=== PATIENT | female | born 1950 | race Caucasian/White ===

== ENCOUNTER 2016-04-12 18:26 | Emergency (ER) | payer MEDICARE, OTHER ==
--- NOTE | 2016-04-12 18:47 | ER Document Report ---
ED Medical Screen (RME) - General Stated Complaint: RIB PAIN Mode of Arrival: Ambulatory Information source: Patient Notes: Patient presents to the emergency department with right-sided rib pain she turned and hit her ribs on the engine block. Patient has a history of fractured ribs. No other symptoms. I greeted and performed a rapid initial assessment of this patient. Comprehensive ED assessment and evaluation of the patient, analysis of test results and completion of the medical decision making process will be conducted by additional ED providers. TRAVEL OUTSIDE OF THE [place] IN LAST 30 DAYS: No - Related Data Allergies/Adverse Reactions: doxycycline [Doxycycline] Allergy (Verified 07/25/13 09:42) hydromorphone HCl [From Dilaudid] Allergy (Verified 07/25/13 09:42) morphine [Morphine] Allergy (Verified 07/25/13 09:42) Past Medical History - Past Medical History Cardiac Medical History: Reports: Hx Hypertension Psychiatric Medical History: Reports: Hx Anxiety, Hx Depression Past Surgical History: Reports: Hx Abdominal Surgery, Hx Appendectomy, Hx Hysterectomy, Hx Orthopedic Surgery - Cervical and lumbar back
[2016-04-12 20:56] VITALS: BP 125/80
--- NOTE | 2016-04-12 20:57 | ER Document Report ---
HPI - HPI Patient complains to provider of: rib pain Onset: Yesterday Onset/Duration: Persistent Quality of pain: Achy Severity: Severe Pain Level: 4 Context: Patient presents to the emergency department with complaints of right-sided pain. She reports she was helping her son yesterday and bumped her ribs on an engine block. She reports history of fractured ribs and it feels the same way. Denies other symptoms such as fever vomiting diarrhea. She is speaking in clear voice no respiratory distress. Associated Symptoms: None. denies: Nonproductive cough Exacerbated by: Denies Relieved by: Denies Similar symptoms previously: Yes - hx of fx ribs Recently seen / treated by doctor: No - REPRODUCTIVE Reproductive: DENIES: : - DERM Skin Color: Normal Past Medical History - General Information source: Patient - Social History Smoking Status: Never Smoker Chew tobacco use (# tins/day): No Frequency of alcohol use: None Drug Abuse: None Lives with: Family Family History: Reviewed & Not Pertinent Patient has suicidal ideation: No Patient has homicidal ideation: No - Past Medical History Cardiac Medical History: Reports: Hx Hypertension Renal/ Medical History: Denies: Hx Peritoneal Dialysis Psychiatric Medical History: Reports: Hx Anxiety, Hx Depression Past Surgical History: Reports: Hx Abdominal Surgery, Hx Appendectomy, Hx Hysterectomy, Hx Orthopedic Surgery - Cervical and lumbar back Vertical Provider Document - CONSTITUTIONAL Agree With Documented VS: Yes Exam Limitations: No Limitations General Appearance: WD/WN, Mild Distress - guarding ribs - INFECTION CONTROL TRAVEL OUTSIDE OF THE [place] IN LAST 30 DAYS: No - HEENT HEENT: Atraumatic, Normocephalic - NECK Neck: Supple - RESPIRATORY Respiratory: Breath Sounds Normal, No Respiratory Distress, Other - right anterior ribs ttp, no ecchymosis ,rr even/unlabored - CARDIOVASCULAR Cardiovascular: Regular Rate - GI/ABDOMEN Gastrointestinal: Abdomen Soft - BACK Back: Normal Inspection - MUSCULOSKELETAL/EXTREMETIES Musculoskeletal/Extremeties: CASPER YIN - NEURO Level of Consciousness: Awake, Alert, Appropriate - DERM Integumentary: Warm, Dry Adult Front & Back Diagram: 1 - c/o pain Course - Re-evaluation Re-evalutation: 04/12/16 21:00 Patient instructed on negative x-rays. Patient instructed to follow up with her primary care provider for recheck. She verbalized understanding. She also reports she has norcol at home for her chronic back pain. - Diagnostic Test Radiology reviewed: Image reviewed, Reports reviewed - neg Discharge - Discharge Clinical Impression: elevated blood pressure Contusion of rib on right side Qualifiers: Encounter type: initial encounter Qualified Code(s): S20.211A - Contusion of right front wall of thorax, initial encounter Condition: Stable Disposition: HOME, SELF-CARE Instructions: Rib Contusion ([facility]) Additional Instructions: *You have been evaluated for rib pain, contusion *Monitor your blood pressure. Your blood pressure was elevated today. This may be because you were anxious, in pain or because you need medication. It is important to follow up with your primary care provider for full evaluation. *Take your pain medication as prescribed *Cough and deep breathe hourly as discussed *Follow up with your primary care provider within one week for recheck *Return to ED for worsening condition, changes, needs Forms: Elevated Blood Pressure
== END 2016-04-12 20:56 | disposition home or self-care (01) ==
LOC: ER 18:26
DX: S20.211A Contusion of right front wall of thorax, initial encounter (principal); R07.81 Pleurodynia; R03.0 Elevated blood-pressure reading, without diagnosis of hypertension; W22.8XXA Striking against or struck by other objects, initial encounter
CPT/HCPCS: 99283

== ENCOUNTER 2016-07-21 05:41 | Emergency (ER) | payer MEDICARE, OTHER ==
[2016-07-21] MEDS ORDERED: ONDANSETRON HCL INJ/PF 4 MG/2 ML SDV ONE (06:03)
[2016-07-21] MEDS ORDERED: NORMAL SALINE 1000 ML 1,000 ML IV ONE (06:04)
[2016-07-21] MEDS ORDERED: ONDANSETRON HCL INJ/PF 4 MG/2 ML SDV IV ONE (06:09)
--- NOTE | 2016-07-21 06:18 | ER Document Report ---
ED GI/ - General Time seen by provider: 06:30 Mode of Arrival: Ambulatory Information source: Patient TRAVEL OUTSIDE OF THE [place] IN LAST 30 DAYS: No - HPI Patient complains to provider of: Diarrhea. No: Vomiting Onset: Other - see HPI note Associated symptoms: Diarrhea Similar symptoms previously: No Recently seen / treated by doctor: No <DELORIS EPSTEIN - Last Filed: 07/21/16 11:30> <JOSIAHCRISTOFER - Last Filed: 07/22/16 05:31> - General Chief Complaint: Nausea/Vomiting/Diarrhea Stated Complaint: VOMITING,DIARRHEA Notes: Patient is a 66 year old female presenting to the ED for diarrhea. Patient states she has had 17 episodes of yellow diarrhea since last night around 21: 00. Patient states diarrhea is not common for her. Patient is on pain management but states she is slowly being weaned off her medicine dosages. Patient states she is also having some headaches/neck pain and hip pain which is chronic for her. Patient states she has had increased pain which is due to her lowering the dosages of her pain medications. Patient sees Dr. Alvares for pain management and Dr. Montgomery as her PCP. Patient has a history of gastric bypass, cholecystectomy, hysterectomy, and diverticulitis. Patient complains of some nausea but denies any vomiting or rectal bleeding. Patient states her pain medications are being lowered because they may be affecting her ability to remember. (DELORIS EPSTEIN) - Related Data Allergies/Adverse Reactions: doxycycline [Doxycycline] Allergy (Verified 04/12/16 18:45) hydromorphone HCl [From Dilaudid] Allergy (Verified 04/12/16 18:45) morphine [Morphine] Allergy (Verified 04/12/16 18:45) Past Medical History - General Information source: Patient - Social History Smoking Status: Unknown if Ever Smoked Family History: None Patient has suicidal ideation: No Patient has homicidal ideation: No - Past Medical History Cardiac Medical History: Reports: Hx Hypertension GI Medical History: Reports: Hx Diverticulitis Psychiatric Medical History: Reports: Hx Anxiety, Hx Depression Past Surgical History: Reports: Hx Abdominal Surgery, Hx Appendectomy, Hx Cholecystectomy, Hx Gastric Bypass Surgery, Hx Hysterectomy, Hx Orthopedic Surgery - Cervical and lumbar back <DELORIS EPSTEIN - Last Filed: 07/21/16 11:30> Review of Systems - Review of Systems Constitutional: No symptoms reported EENT: No symptoms reported Cardiovascular: No symptoms reported Respiratory: No symptoms reported Gastrointestinal: See HPI, Diarrhea, Nausea. denies: Vomiting Genitourinary: No symptoms reported Female Genitourinary: No symptoms reported Musculoskeletal: See HPI Skin: No symptoms reported Hematologic/Lymphatic: No symptoms reported Neurological/Psychological: See HPI, Headaches -: Yes All other systems reviewed and negative <DELORIS EPSTEIN - Last Filed: 07/21/16 11:30> Physical Exam - Vital signs Interpretation: Hypotensive - General General appearance: Appears well, Alert In distress: Mild - HEENT Head: Normocephalic, Atraumatic Eyes: Normal Pupils: PERRL Mucous membranes: Moist - Respiratory Respiratory status: No respiratory distress Chest status: Nontender Breath sounds: Normal Chest palpation: Normal - Cardiovascular Rhythm: Regular Heart sounds: Normal auscultation Murmur: No - Abdominal Inspection: Normal Distension: No distension Bowel sounds: Normal Tenderness: Nontender Organomegaly: No organomegaly - Back Back: Normal, Nontender - Extremities General upper extremity: Normal inspection, Normal ROM, Normal strength General lower extremity: Normal inspection, Normal ROM, Normal strength - Neurological Neuro grossly intact: Yes Cognition: Normal Orientation: AAOx4 Alisson Coma Scale Eye Opening: Spontaneous Alisson Coma Scale Verbal: Oriented Alisson Coma Scale Motor: Obeys Commands [place] Coma Scale Total: 15 Speech: Normal - Psychological Associated symptoms: Normal affect, Normal mood - Skin Skin Temperature: Warm Skin Moisture: Dry <TETEDELORIS - Last Filed: 07/21/16 11:30> Course - Laboratory Result Diagrams: 07/21/16 06:05 07/21/16 06:05 <STANFORDANGELIADELORIS - Last Filed: 07/21/16 11:30> - Laboratory Result Diagrams: 07/21/16 06:05 07/21/16 06:05 <CRISTOFER RAHMAN - Last Filed: 07/22/16 05:31> - Re-evaluation Re-evalutation: 07/21/16 09:35 presents emergency, chief complaint of pain all over dry heaving and diarrhea. Says she started with diarrhea last night had several episodes of nonbloody in nature said she had a history of a gastric bypass that she can only dry heaves. Her main complaint on arrival is pain aching in her shoulders or neck and her back area she has a chronic pain patient and sees pain management. They have been weaning her off of her medication due to some neuro concerns that the neurologist has with dementia and forgetfulness. On examination she is well-appearing nontoxic vital signs are stable she is afebrile she is in no acute distress. Heart lungs abdomen serial exams no acute tenderness guarding or rigidity labs no acute white count elevation electrolytes are stable no acute emergent concerns for need for CT scan. Patient tolerating by mouth fluids sent home with nausea medication oral hydration one to 2 day follow-up primary care physician and discussed reasons for ED return sooner 07/22/16 05:31 (CRISTOFER RAHMAN) - Vital Signs Vital signs: Temp Pulse Resp BP Pulse Ox 99.9 F 83 16 120/84 99 07/21/16 10:01 07/21/16 10:01 07/21/16 10:01 07/21/16 10:01 07/21/16 10:01 - Laboratory Laboratory results interpreted by me: 07/21/16 07/21/16 07/21/16 06:05 06:05 07:38 RDW 14.2 H Seg Neutrophils % 81.8 H Lymphocytes % 9.3 L Sodium 136.4 L Carbon Dioxide 19 L Est GFR (Non-Af Amer) 56 L Glucose 112 H AST 40 H Total Protein 8.4 H Urine Ketones 20 H Discharge <DELORIS EPSTEIN - Last Filed: 07/21/16 11:30> <CRISTOFER RAHMAN - Last Filed: 07/22/16 05:31> - Discharge Clinical Impression: generalized pain, history of chronic pain, Acute diarrhea, acute nausea Condition: Stable Disposition: HOME, SELF-CARE Additional Instructions: Diarrhea Diarrhea means frequent, watery stools. There are many causes. Any problem that keeps the intestinal tract from absorbing water from the stool can lead to diarrhea. A sudden new diarrhea problem is usually caused by a virus, food sensitivity, toxic bacteria, or drugs. In this case, we expect the problem to go away soon. Testing is done only if you seem seriously ill from the diarrhea. If you have chronic diarrhea, or diarrhea that keeps coming back, we need to find out why. Chronic diarrhea can be due to inflammation of the bowels such as Crohn's disease or ulcerative colitis, food sensitivity such as intolerance to lactose or wheat protein, irritable bowel syndrome, and other problems. If your diarrhea is a significant problem but it's not clear why you have it, we' ll refer you to a specialist for further testing. During an episode of diarrhea, drink small amounts (two to six ounces) of clear liquids (soft drinks, sport drinks, herb teas, broth, etc). Take fluids frequently to prevent dehydration. It's usually not a problem to take mild anti- diarrhea medication such as Kaopectate or Pepto-Bismol. As the diarrhea eases, advance to small amounts of bland food (mashed potato, toast) for 24 hours. Call the physician if blood appears in your vomit or stool, if vomiting lasts longer than 24 hours, if the abdominal pain worsens or becomes localized to one area, if you develop high fever, or if you become lightheaded and weak. Nausea or Vomiting, Nonspecific Vomiting (or nausea without vomiting) can be caused by many different problems. Of course, it can mean that something's wrong with the stomach, such as "stomach flu," ulcers, or inflammation. But it can also be a symptom of a problem that has nothing to do with the stomach or intestines. Vomiting is common with severe headaches, earaches, and tonsillitis. We see it with pneumonia or heart attacks. Drugs can cause nausea. Many abdominal problems cause vomiting; for example, gallstones, kidney stones, pancreatitis, and intestinal obstruction (blocked bowels). In most cases, curing the vomiting depends on fixing the problem that caused it. For temporary relief, we may use an anti-nausea medicine. For home use, we can prescribe suppositories, chewable pills, pills that dissolve in the mouth, or liquid anti-nausea drugs. If the vomiting seems to be caused by a problem in the stomach, acid-suppressing drugs may be prescribed as well. It's important to avoid dehydration. Sip clear liquids. Take increasing amounts of fluid over the first 24 hours. Then start small amounts of bland foods (such as dry toast, applesauce, mashed potato). Avoid aspirin, tobacco, and alcohol. Gradually resume your usual diet. If the vomiting worsens, if the problem that's making you vomit worsens, or if there's evidence of bleeding in the stomach (such as black, tarry stool, bloody or black vomit, or lightheadedness), you should return immediately. Call your doctor if you aren't improved in 24 to 36 hours. Prescriptions: Ondansetron [Zofran Odt 4 mg Tablet] 1 - 2 tab PO Q4H PRN #15 tab.rapdis PRN Reason: For Nausea/Vomiting Referrals: RAMIREZ BELCHER PA [Primary Care Provider] - (In 2-3 days return for increasing worsening or new symptoms) Scribe Attestation: 07/21/16 09:37 I personally performed the services described in the documentation reviewed the documentation recorded by my scribe in my presence and it accurately and completely records my words and actions (CRISTOFER RAHMAN) Scribe Documentation - Scribe Written by Scribe:: Deloris Epstein 07/21/16 11:45 acting as scribe for :: Josiah <DELORIS EPSTEIN - Last Filed: 07/21/16 11:30>
[2016-07-21 06:27] LABS: ABSOLUTE EOSINOPHILS # (AUTO) 0.1 10^3/uL (0.0-0.6); ABSOLUTE LYMPHOCYTES (AUTO) 0.9 10^3/uL (0.5-4.7); ABSOLUTE MONOCYTES (AUTO) 0.7 10^3/uL (0.1-1.4); ABSOLUTE NEUT (AUTO) 7.5 10^3/uL (1.7-8.2); BASOPHILS % (AUTO) 0.3 % (0-2); EOSINOPHILS % (AUTO) 0.7 % (0-6); HEMATOCRIT 40.1 % (36.0-47.0); HEMOGLOBIN 13.8 g/dL (12.0-15.5); HGB HCT DIFFERENCE 1.3; LYMPHOCYTES % (AUTO) 9.3 % (13-45); MEAN CORPUSCULAR HEMOGLOBIN 30.1 pg (27.0-33.4); MEAN CORPUSCULAR HGB CONC 34.4 g/dL (32.0-36.0); MEAN CORPUSCULAR VOLUME 88 fl (80-97); MONOCYTES % (AUTO) 7.9 % (3-13); RED BLOOD COUNT 4.57 10^6/uL (3.72-5.28); RED CELL DISTRIBUTION WIDTH 14.2 % (11.5-14.0); SEGMENTED NEUTROPHILS % (AUTO) 81.8 % (42-78); WHITE BLOOD COUNT 9.1 10^3/uL (4.0-10.5)
[2016-07-21 06:31] LABS: ALANINE AMINOTRANSFERASE 40 U/L (9-52); ALKALINE PHOSPHATASE 118 U/L (38-126); ANION GAP 16 (5-19); ASPARTATE AMINO TRANSFERASE 40 U/L (14-36); BILIRUBIN,DIRECT 0.3 mg/dL (0.0-0.4); BILIRUBIN,TOTAL 0.8 mg/dL (0.2-1.3); BLOOD UREA NITROGEN 17 mg/dL (7-20); CALCIUM 9.7 mg/dL (8.4-10.2); CARBON DIOXIDE 19 mmol/L (22-30); CHLORIDE 101 mmol/L (98-107); CREATININE RESULT 0.99 mg/dL (0.52-1.25); GLUCOSE 112 mg/dL (75-110); LIPASE 93.7 U/L (23-300); POTASSIUM 4.1 mmol/L (3.6-5.0); SODIUM 136.4 mmol/L (137-145); TOTAL PROTEIN 8.4 g/dL (6.3-8.2)
[2016-07-21] MEDS ORDERED: LORAZEPAM INJ 2 MG/1 ML VIAL IV ONE (07:26)
[2016-07-21 08:12] LABS: APPEARANCE,URINE SLIGHTLY-CLOUDY; BILIRUBIN,URINE NEGATIVE (NEGATIVE); GLUCOSE, URINE NEGATIVE (NEGATIVE); KETONES,URINE 20 mg/dL (NEGATIVE); LEUKOCYTE ESTERASE,URINE NEGATIVE (NEGATIVE); NITRITE,URINE NEGATIVE (NEGATIVE); PROTEIN,URINE NEGATIVE (NEGATIVE); URINE SPECIFIC GRAVITY 1.016; UROBILINOGEN,URINE NEGATIVE mg/dL (<2.0)
[2016-07-21 10:02] VITALS: BP 120/84
== END 2016-07-21 10:01 | disposition home or self-care (01) ==
LOC: ER 05:41
DX: R52 Pain, unspecified (principal); G89.29 Other chronic pain; R19.7 Diarrhea, unspecified; R11.2 Nausea with vomiting, unspecified
CPT/HCPCS: 99284; 96361; 96374; 96375; 36415; 83690; 85025; 80053; 81001; J2060; J2405; J7030

== ENCOUNTER 2016-08-16 16:36 | Emergency (ER) | payer MEDICARE, OTHER ==
[2016-08-16] MEDS ORDERED: ACETAMINOPHEN 325 MG TABLET PO ONE (18:05)
--- NOTE | 2016-08-16 19:40 | ER Document Report ---
HPI - HPI Patient complains to provider of: Arm pain Pain Level: 5 Context: Patient is a 66-year-old female presents emergency department after a fall onto an outstretched hand earlier this afternoon. She admits to pain in her left hand wrist forearm and elbow. She has full range of motion, sensation intact. Denies any other injury. Patient is in pain management for degenerative disc disease and arthritis of her back. She states that she takes 07/31/24 [place] twice daily for her pain. - REPRODUCTIVE Reproductive: DENIES: : - DERM Skin Color: Normal Past Medical History - Social History Smoking Status: Never Smoker Chew tobacco use (# tins/day): No Frequency of alcohol use: None Drug Abuse: None Family History: None Patient has suicidal ideation: No Patient has homicidal ideation: No - Past Medical History Cardiac Medical History: Reports: Hx Hypertension Renal/ Medical History: Denies: Hx Peritoneal Dialysis GI Medical History: Reports: Hx Diverticulitis Psychiatric Medical History: Reports: Hx Anxiety, Hx Bipolar Disorder, Hx Depression Past Surgical History: Reports: Hx Abdominal Surgery, Hx Appendectomy, Hx Cholecystectomy, Hx Gastric Bypass Surgery, Hx Hysterectomy, Hx Orthopedic Surgery - Cervical and lumbar back Vertical Provider Document - CONSTITUTIONAL Agree With Documented VS: Yes Exam Limitations: No Limitations General Appearance: WD/WN, No Apparent Distress Notes: PHYSICAL EXAM GENERAL: Alert, interacts well. HEAD: Normocephalic, atraumatic. LUNGS: Clear to auscultation bilaterally, no wheezes, rales, or rhonchi. No respiratory distress. HEART: Regular rate and rhythm. No murmurs, gallops, or rubs. EXTREMITIES: Moves all 4 extremities spontaneously guarding of the left forearm. Patient's range of motion is intact, sensation intact. No evidence of swelling, deformity.. No edema, radial and dorsalis pedis pulses 2/4 bilaterally. No cyanosis. NEUROLOGICAL: Alert and oriented x4. Normal speech. PSYCH: Normal affect, normal mood. SKIN: Warm, dry, normal turgor. No rashes or lesions noted. - INFECTION CONTROL TRAVEL OUTSIDE OF THE [place] IN LAST 30 DAYS: No - RESPIRATORY O2 Sat by Pulse Oximetry: 99 Course - Re-evaluation Re-evalutation: 08/16/16 20:12 This 56-year-old female who is hemodynamic stable, no acute distress and afebrile. No evidence of fracture dislocation on x-ray. Patient placed in a splint per her request and will be discharged home. - Vital Signs Vital signs: Temp Pulse Resp BP Pulse Ox 98.4 F 73 16 112/77 99 08/16/16 16:44 08/16/16 16:44 08/16/16 16:44 08/16/16 16:44 08/16/16 16:44 - Diagnostic Test Radiology reviewed: Image reviewed, Reports reviewed Discharge - Discharge Clinical Impression: Left arm pain Condition: Good Disposition: HOME, SELF-CARE Instructions: Ice & Elevation ([facility]), Use of Errd-Ter-Pnsnzzv Ibuprofen ([facility]) Prescriptions: Hydrocodone/Acetaminophen [[place] 5-325 mg Tablet] 1 tab PO Q6HP PRN #15 tablet PRN Reason: Referrals: RAMIREZ BELCHER PA [Primary Care Provider] - Follow up as needed
[2016-08-16 19:55] VITALS: BP 121/79
== END 2016-08-16 19:57 | disposition home or self-care (01) ==
LOC: ER 16:36
DX: M79.602 Pain in left arm (principal); W19.XXXA Unspecified fall, initial encounter; I10 Essential (primary) hypertension; Z90.49 Acquired absence of other specified parts of digestive tract; Z98.84 Bariatric surgery status; Z90.710 Acquired absence of both cervix and uterus
CPT/HCPCS: 99283; 73070; 73120; 73100; L3984; A9270

== ENCOUNTER 2016-08-21 17:53 | Emergency (ER) | payer MEDICARE, OTHER ==
[2016-08-21] MEDS ORDERED: DIAZEPAM INJ 10 MG/2 ML DISP.SYRIN IV ONE ×2 (18:49→20:31)
--- NOTE | 2016-08-21 18:53 | ER Document Report ---
ED General - General Chief Complaint: Anxiety Stated Complaint: ANXIETY Time Seen by Provider: 08/21/16 18:16 Notes: Patient is a 66-year-old female with a past medical history of severe anxiety, chronic pain, Mnire's disease with persistent vertigo who presents with increasing anxiety, a feeling of difficulty breathing, and vertigo. She was sent from her psychiatry clinic due to her feeling of difficulty breathing. States it has felt very similar to in the past when she has had anxiety attacks. She admits that she is currently weaning off a total of 4 mg of Xanax daily and apparently has not taken this medication in several weeks. She has not noted that anything seems to improve or worsen her symptoms. Denies any chest pain, weakness, numbness, altered mental status nausea or vomiting. Her at the bedside notes that they are under an extreme amount of stress due to family discord, financial strain, including a house and that the patient' s anxiety and somatic symptoms have been gradually building over the past 2 months TRAVEL OUTSIDE OF THE [place] IN LAST 30 DAYS: No - Related Data Allergies/Adverse Reactions: doxycycline [Doxycycline] Allergy (Verified 04/12/16 18:45) hydromorphone HCl [From Dilaudid] Allergy (Verified 04/12/16 18:45) morphine [Morphine] Allergy (Verified 04/12/16 18:45) Past Medical History - General Information source: Patient - Social History Smoking Status: Never Smoker Chew tobacco use (# tins/day): No Frequency of alcohol use: None Drug Abuse: None Lives with: Spouse/Significant other Family History: Reviewed & Not Pertinent - Past Medical History Cardiac Medical History: Reports: Hx Hypertension Renal/ Medical History: Denies: Hx Peritoneal Dialysis GI Medical History: Reports: Hx Diverticulitis Psychiatric Medical History: Reports: Hx Anxiety, Hx Bipolar Disorder, Hx Depression Past Surgical History: Reports: Hx Abdominal Surgery, Hx Appendectomy, Hx Cholecystectomy, Hx Gastric Bypass Surgery, Hx Hysterectomy, Hx Orthopedic Surgery - Cervical and lumbar back Review of Systems - Review of Systems Notes: Constitutional: Negative for fever. HENT: Negative for sore throat. Eyes: Negative for visual changes. Cardiovascular: Negative for chest pain. Respiratory: Positive for shortness of breath. Gastrointestinal: Negative for abdominal pain, vomiting or diarrhea. Genitourinary: Negative for dysuria. Musculoskeletal: Negative for back pain. Skin: Negative for rash. Neurological: Negative for headaches, weakness or numbness. 10 point ROS negative except as marked above and in HPI. Physical Exam - Vital signs Vitals: Resp BP Pulse Ox 15 141/84 H 100 08/21/16 19:05 08/21/16 19:05 08/21/16 19:05 Interpretation: Normal Notes: PHYSICAL EXAMINATION: GENERAL: Well-appearing, well-nourished and in no acute distress. HEAD: Atraumatic, normocephalic. EYES: Pupils equal round and reactive to light, extraocular movements intact, sclera anicteric, conjunctiva are normal. ENT: nares patent, oropharynx clear without exudates. Moist mucous membranes. NECK: Normal range of motion, supple without lymphadenopathy LUNGS: Breath sounds clear to auscultation bilaterally and equal. No wheezes rales or rhonchi. HEART: Regular rate and rhythm without murmurs ABDOMEN: Soft, nontender, normoactive bowel sounds. No guarding, no rebound. No masses appreciated. EXTREMITIES: Normal range of motion, no pitting or edema. No cyanosis. NEUROLOGICAL: Face symmetric. Tongue protrudes midline. Extraocular motions intact. Pupils are 2 mm and equally reactive. Normal speech, normal gait. 5 out of 5 strength in both the distal and proximal upper and lower extremities bilaterally. Sensation is grossly intact throughout. Finger to nose testing normal. Pronator drift normal. PSYCH: Extremely anxious, tremulous, tearful SKIN: Warm, Dry, normal turgor, no rashes or lesions noted. Course - Re-evaluation Re-evalutation: 08/21/16 18:50 Presentation of vertigo that appears most consistent with a benign peripheral vertigo. Patient has a history of exact same symptoms in the past with exacerbations of her underlying Mnire's disease. She is also complaining of shortness of breath which both she and her agree is likely related to her underlying anxiety and panic disorder as she is currently off of her alprazolam. Patient has no abnormal findings on exam. Normal cerebellar testing , steady even gait. Able to walk on heels and toes. Normal proprioception. Patient is not an elevated risk for a cerebellar infarction given absence of significant risk factors of similar episodes in the past. Her laboratories do not indicate any acute ab normality to be a mild hyponatremia and patient does admit to decreased oral intake. 08/21/16 20:59 Patient had an improvement of her symptoms at this time. She remains without any focal neurologic deficit. She has been able to ambulate to the bathroom. At this time will discharge with return precautions and follow-up recommendations. Verbal discharge instructions given a the bedside and opportunity for questions given. Medication warnings reviewed. Patient is in agreement with this plan and has verbalized understanding of return precautions and the need for primary care follow-up in the next 24-72 hours. - Vital Signs Vital signs: Temp Pulse Resp BP Pulse Ox 51 L 16 172/71 H 100 08/21/16 21:22 08/21/16 21:22 08/21/16 21:22 08/21/16 21:22 - Laboratory Result Diagrams: 08/21/16 19:10 Laboratory results interpreted by me: 08/21/16 19:10 Sodium 128.0 L Potassium 3.5 L Chloride 97 L Carbon Dioxide 19 L - Diagnostic Test Radiology reviewed: Image reviewed, Reports reviewed - EKG Interpretation by Me Additional EKG results interpreted by me: 08/21/16 20:36 Normal sinus rhythm. Rate 60. No ST elevations or depressions. QTC at 448. Discharge - Discharge Clinical Impression: Dizziness, Hyponatremia Condition: Good Disposition: HOME, SELF-CARE Instructions: Anxiety ([facility]) Additional Instructions: You were seen today for lightheadedness/dizziness. The exact cause of your symptoms is unclear but your workup here is reassuring without any concerning findings. Please follow closely with your primary care physician in the next 1- 3 days. Return if you pass out, have additional episodes of lightheadedness, develop weakness/numbness, have persistent vomiting, chest pain, shortness of breath or any other symptoms that are concerning to you Referrals: RAMIREZ BELCHER PA [Primary Care Provider] - Follow up as needed
--- NOTE | 2016-08-21 19:13 | RADIOLOGY REPORT (SQ) ---
EXAM DESCRIPTION: CHEST SINGLE VIEW COMPLETED DATE/TIME: 08/21/2016 7:03 pm REASON FOR STUDY: sob COMPARISON: 09/02/2007 EXAM PARAMETERS: NUMBER OF VIEWS: One view. TECHNIQUE: Single frontal radiographic view of the chest acquired. RADIATION DOSE: NA LIMITATIONS: None. FINDINGS: LUNGS AND PLEURA: No opacities, masses or pneumothorax. No pleural effusion. MEDIASTINUM AND HILAR STRUCTURES: No masses. Contour normal. HEART AND VASCULAR STRUCTURES: Heart normal in size. Normal vasculature. BONES: No acute findings. HARDWARE: None in the chest. OTHER: No other significant finding. IMPRESSION: NO ACUTE RADIOGRAPHIC FINDING IN THE CHEST. TECHNICAL DOCUMENTATION: JOB ID: [id number]
[2016-08-21 19:34] LABS: ANION GAP 12 (5-19); BLOOD UREA NITROGEN 11 mg/dL (7-20); CALCIUM 9.6 mg/dL (8.4-10.2); CARBON DIOXIDE 19 mmol/L (22-30); CHLORIDE 97 mmol/L (98-107); GLUCOSE 94 mg/dL (75-110); POTASSIUM 3.5 mmol/L (3.6-5.0)
[2016-08-21] MEDS ORDERED: NORMAL SALINE 1000 ML 1,000 ML IV ONE (19:40)
--- NOTE | 2016-08-21 20:05 | EKG REPORT ---
SEVERITY:- BORDERLINE ECG - SINUS RHYTHM BORDERLINE T ABNORMALITIES, INFERIOR LEADS : Confirmed by: Brandon Andrews MD 21-Aug-2016 20:04:47
[2016-08-21 21:23] VITALS: BP 172/71
== END 2016-08-21 21:22 | disposition home or self-care (01) ==
LOC: ER 17:53
DX: R42 Dizziness and giddiness (principal); E87.1 Hypo-osmolality and hyponatremia; F41.9 Anxiety disorder, unspecified; G89.29 Other chronic pain; H81.09 Meniere's disease, unspecified ear; R06.02 Shortness of breath; Z79.899 Other long term (current) drug therapy
CPT/HCPCS: 93005; 96376; 99284; 96361; 96374; 36415; 80048; 84484; 71010; 93010; J3360; J7030

== ENCOUNTER 2016-11-06 20:12 | Emergency (ER) | payer MEDICARE, OTHER ==
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
[2016-11-07 00:59] VITALS: BP 133/71
== END 2016-11-07 16:31 | disposition home or self-care (01) ==
LOC: ER 20:12
DX: S20.211A Contusion of right front wall of thorax, initial encounter (principal); R07.9 Chest pain, unspecified; W20.8XXA Other cause of strike by thrown, projected or falling object, initial encounter; Y93.H9 Activity, other involving exterior property and land maintenance, building and construction; I10 Essential (primary) hypertension; Z88.1 Allergy status to other antibiotic agents; Z88.5 Allergy status to narcotic agent
CPT/HCPCS: 71020; 99284

== ENCOUNTER 2017-03-31 17:35 | Emergency (ER) | payer MEDICARE, OTHER ==
[2017-03-31] MEDS ORDERED: ADENOSINE INJ/PF 6 MG/2 ML SDV IV ONE ×2 (17:49→18:01)
[2017-03-31] MEDS ORDERED: ASPIRIN 81 MG TABLET, CHEWABLE PO ONE (18:01)
[2017-03-31 18:19] LABS: ABSOLUTE BASOPHILS # (AUTO) 0.1 10^3/uL (0.0-0.2); ABSOLUTE EOSINOPHILS # (AUTO) 0.1 10^3/uL (0.0-0.6); ABSOLUTE LYMPHOCYTES (AUTO) 3.6 10^3/uL (0.5-4.7); ABSOLUTE MONOCYTES (AUTO) 0.9 10^3/uL (0.1-1.4); ABSOLUTE NEUT (AUTO) 4.6 10^3/uL (1.7-8.2); BASOPHILS % (AUTO) 0.7 % (0-2); EOSINOPHILS % (AUTO) 0.9 % (0-6); HEMATOCRIT 37.8 % (36.0-47.0); HEMOGLOBIN 12.6 g/dL (12.0-15.5); LYMPHOCYTES % (AUTO) 39.5 % (13-45); MEAN CORPUSCULAR HEMOGLOBIN 29.8 pg (27.0-33.4); MEAN CORPUSCULAR HGB CONC 33.2 g/dL (32.0-36.0); MEAN CORPUSCULAR VOLUME 90 fl (80-97); MONOCYTES % (AUTO) 9.6 % (3-13); PLATELET COUNT 376 10^3/uL (150-450); RED BLOOD COUNT 4.21 10^6/uL (3.72-5.28); RED CELL DISTRIBUTION WIDTH 12.8 % (11.5-14.0); SEGMENTED NEUTROPHILS % (AUTO) 49.3 % (42-78); TOTAL CELLS COUNTED % (AUTO) 100 %; WHITE BLOOD COUNT 9.2 10^3/uL (4.0-10.5)
[2017-03-31 18:24] LABS: ALANINE AMINOTRANSFERASE 22 U/L (9-52); ALBUMIN 4.2 g/dL (3.5-5.0); ALKALINE PHOSPHATASE 78 U/L (38-126); ANION GAP 10 (5-19); ASPARTATE AMINO TRANSFERASE 22 U/L (14-36); BILIRUBIN,DIRECT 0.2 mg/dL (0.0-0.4); BILIRUBIN,TOTAL 0.3 mg/dL (0.2-1.3); BLOOD UREA NITROGEN 17 mg/dL (7-20); CALCIUM 9.3 mg/dL (8.4-10.2); CARBON DIOXIDE 24 mmol/L (22-30); CHLORIDE 102 mmol/L (98-107); CREATINE KINASE 66 U/L (30-135); GLUCOSE 68 mg/dL (75-110); POTASSIUM 3.9 mmol/L (3.6-5.0); SODIUM 136.4 mmol/L (137-145); TOTAL PROTEIN 6.5 g/dL (6.3-8.2)
[2017-03-31 18:34] LABS: CREATINE KINASE MB 1.5 ng/mL (<4.55)
[2017-03-31 18:39] LABS: TROPONIN I 0.228 ng/mL
--- NOTE | 2017-03-31 18:49 | RADIOLOGY REPORT (SQ) ---
EXAM DESCRIPTION: CHEST SINGLE VIEW COMPLETED DATE/TIME: 03/31/2017 6:22 pm REASON FOR STUDY: palpitations COMPARISON: 2016. NUMBER OF VIEWS: One view. TECHNIQUE: Single frontal radiographic view of the chest acquired. LIMITATIONS: None. FINDINGS: LUNGS AND PLEURA: Minimal linear opacities left base, subsegmental atelectasis versus scar . Lungs otherwise clear without evidence of pneumonia or suspicious opacity. No pneumothorax or ple ural fluid or failure. MEDIASTINUM AND HILAR STRUCTURES: No masses. Contour normal. HEART AND VASCULAR STRUCTURES: Heart normal in size. Normal vasculature. BONES: No acute findings. HARDWARE: None in the chest. OTHER: No other significant finding. IMPRESSION: No acute cardiopulmonary disease. TECHNICAL DOCUMENTATION: JOB ID: [id number] [employer]- All Rights Reserved
--- NOTE | 2017-03-31 19:09 | ER Document Report ---
ED General <ELEAZAR SHELL - Last Filed: 03/31/17 19:12> - General TRAVEL OUTSIDE OF THE [place] IN LAST 30 DAYS: No <WILLY PINEDO - Last Filed: 04/01/17 02:27> - General Chief Complaint: Chest Pain Stated Complaint: CHEST PAIN Time Seen by Provider: 03/31/17 18:31 Notes: Patient is a 66-year-old female without past medical history, prior spinal fusion surgeries, who presents with 4 hours of chest pressure with associated palpitations. Prior to my evaluation of this patient she was found to be in supraventricular tachycardia, had chemical cardioversion, and is subsequently transferred to my care. At time of my assessment patient is denying any ongoing symptoms. She states approximately 4 hours prior to coming to the emergency department she developed palpitations with associated chest pressure and shortness of breath. She states that she has had these symptoms in the past secondary to SVT and they usually spontaneously resolved. She states she therefore decided to wait it out at home when the symptoms persisted she decided to come into the hospital. She has never had SVT last for this duration of time. During the her episode nothing seemed to improve or worsen her symptoms. She has no prior history of ACS. She did have a stress test 2 years ago that was noted to be normal. She denies any recent medication changes. She denies any alcohol or drug use. No stimulant use. (WILLY PINEDO) - Related Data Allergies/Adverse Reactions: doxycycline [Doxycycline] Allergy (Verified 03/31/17 18:03) hydromorphone HCl [From Dilaudid] Allergy (Verified 03/31/17 18:03) morphine [Morphine] Allergy (Verified 03/31/17 18:03) Past Medical History - General Information source: Patient - Social History Smoking Status: Never Smoker Frequency of alcohol use: None Drug Abuse: None Lives with: Spouse/Significant other Family History: Reviewed & Not Pertinent Patient has suicidal ideation: No Patient has homicidal ideation: No - Past Medical History Cardiac Medical History: Reports: Hx Hypertension Renal/ Medical History: Denies: Hx Peritoneal Dialysis GI Medical History: Reports: Hx Diverticulitis Psychiatric Medical History: Reports: Hx Anxiety, Hx Bipolar Disorder, Hx Depression Past Surgical History: Reports: Hx Abdominal Surgery, Hx Appendectomy, Hx Cholecystectomy, Hx Gastric Bypass Surgery, Hx Hysterectomy, Hx Orthopedic Surgery - Cervical and lumbar back <WILLY PINEDO - Last Filed: 04/01/17 02:27> Review of Systems <ELEAZAR SHELL - Last Filed: 03/31/17 19:12> <WILLY PINEDO - Last Filed: 04/01/17 02:27> - Review of Systems Notes: Constitutional: Negative for fever. HENT: Negative for sore throat. Eyes: Negative for visual changes. Cardiovascular: Positive for chest pressure and palpitations now resolved Respiratory: Negative for shortness of breath. Gastrointestinal: Negative for abdominal pain, vomiting or diarrhea. Genitourinary: Negative for dysuria. Musculoskeletal: Negative for back pain. Skin: Negative for rash. Neurological: Negative for headaches, weakness or numbness. 10 point ROS negative except as marked above and in HPI. (WILLY PINEDO) Physical Exam <ELEAZAR SHELL - Last Filed: 03/31/17 19:12> - Vital signs Interpretation: Tachycardic <ARLETTE PINEDOIAN - Last Filed: 04/01/17 02:27> - Vital signs Vitals: Temp Pulse Resp BP Pulse Ox 98.2 F 190 H 22 H 119/70 100 03/31/17 17:40 03/31/17 17:40 03/31/17 17:40 03/31/17 17:40 03/31/17 17:40 Notes: PHYSICAL EXAMINATION: GENERAL: Well-appearing, well-nourished and in no acute distress. HEAD: Atraumatic, normocephalic. EYES: Pupils equal round and reactive to light, extraocular movements intact, sclera anicteric, conjunctiva are normal. ENT: nares patent, oropharynx clear without exudates. Moist mucous membranes. NECK: Normal range of motion, supple without lymphadenopathy LUNGS: Breath sounds clear to auscultation bilaterally and equal. No wheezes rales or rhonchi. HEART: Regular rate and rhythm without murmurs ABDOMEN: Soft, nontender, normoactive bowel sounds. No guarding, no rebound. No masses appreciated. EXTREMITIES: Normal range of motion, no pitting or edema. No cyanosis. NEUROLOGICAL: No focal neurological deficits. Moves all extremities spontaneously and on command. PSYCH: Normal mood, normal affect. SKIN: Warm, Dry, normal turgor, no rashes or lesions noted. (WILLY PINEDO) Course - Laboratory Result Diagrams: 03/31/17 17:50 03/31/17 17:50 <SHUKRIELEAZAR LEE - Last Filed: 03/31/17 19:12> - Laboratory Result Diagrams: 03/31/17 17:50 03/31/17 17:50 - Diagnostic Test Radiology reviewed: Image reviewed, Reports reviewed <WILLY PINEDO - Last Filed: 04/01/17 02:27> - Re-evaluation Re-evalutation: 03/31/17 19:07 Patient presents with chest heaviness and palpitations that have been ongoing for 4 hours prior to arrival found to be in supraventricular tachycardia at time of arrival. She was cardioverted using adenosine prior to my assessment. At time of my evaluation patient denies any ongoing chest pressure palpitations and states she feels quite well. EKG after cardioversion shows a normal sinus rhythm without any ischemic changes. Her troponin however is moderately elevated which is not entirely unanticipated given that she was having symptoms of supraventricular tachycardia for at least 4 hours prior to arrival. Will repeat the troponin 2hours from initial to monitor trend. We will then reassess the patient. She is agreeable to this plan. 03/31/17 20:36 Second troponin has taken a marked rise to 1.39. The patient continues without any chest pain or shortness of breath. She has already taken aspirin prior to coming to the hospital today. She will be given a dose of Lovenox. I have contacted [facility] for transfer. 03/31/17 21:00 I have discussed with the physician mailing machine assistant covering for the microbiological lab technician Dr. Pop who is accepted the patient for transfer. 03/31/17 22:03 Patient continues to be hemodynamically stable. She is appropriate for transport (WILLY PINEDO) - Vital Signs Vital signs: Temp Pulse Resp BP Pulse Ox 97.9 F 69 16 111/88 H 100 03/31/17 21:00 03/31/17 20:39 03/31/17 22:01 03/31/17 22:01 03/31/17 22:01 - Laboratory Laboratory results interpreted by me: 03/31/17 17:50 Sodium 136.4 L Glucose 68 L - Diagnostic Test Radiology results interpreted by me: 03/31/17 19:09 Chest x-ray: No acute infiltrate or pneumothorax (WILLY PINEDO) - EKG Interpretation by Me Additional EKG results interpreted by me: 03/31/17 19:09 EKG 1: SVT, rate 172. No ST elevations or depressions. QTC is 420. EKG 2: Normal sinus rhythm, rate 55. No ST elevations or depressions. QTC is 395 (WILLY PINEDO) Procedures - Additional Procedures Cardioversion/Defib Time performed: 18:15 Additional Procedures: Cardioversion/defib <ELEAZAR SHELL - Last Filed: 03/31/17 19:12> <WILLY PINEDO - Last Filed: 04/01/17 02:27> - Additional Procedures Cardioversion/Defib Notes: 03/31/17 19:13 Indication: SVT with a rate of 187: Symptomatic Patient was placed on alarm security or surveillance monitor with oxygen Defibrillating pads were placed on patient for cardioversion. 6 mg bolus of IV adenosine given. Arm was extended up. Patient did convert to sinus rhythm. Some ventricular ectopy was noted initially. Patient tolerated the procedure well. (ELEAZAR SEHLL) Discharge <ELEAZAR SHELL - Last Filed: 03/31/17 19:12> <WILLY PINEDO - Last Filed: 04/01/17 02:27> - Discharge Clinical Impression: NSTEMI (non-ST elevated myocardial infarction), SVT (supraventricular tachycardia) Condition: Fair Disposition: [facility] Referrals: RAMIREZ BELCHER PA [Primary Care Provider] - Follow up as needed
[2017-03-31] MEDS ORDERED: ENOXAPARIN SODIUM INJ 80 MG/0.8 ML DISP.SYRIN SUBCUT SCH (22:00)
[2017-03-31 22:11] VITALS: BP 111/88
--- NOTE | 2017-04-01 09:34 | EKG REPORT ---
SEVERITY:- ABNORMAL ECG - SUPRAVENTRICULAR TACHYCARDIA REPOLARIZATION ABNORMALITY, PROB RATE RELATED : Confirmed by: Claire Chaparro 01-Apr-2017 09:33:27
--- NOTE | 2017-04-01 09:34 | EKG REPORT ---
SEVERITY:- NORMAL ECG - SINUS RHYTHM : Confirmed by: Claire Chaparro 01-Apr-2017 09:33:18
== END 2017-03-31 22:24 | disposition short-term general hospital (02) ==
LOC: ER 17:35
DX: I21.4 Non-ST elevation (NSTEMI) myocardial infarction (principal); I47.1 Supraventricular tachycardia; R07.89 Other chest pain; R06.02 Shortness of breath; I10 Essential (primary) hypertension; Z88.1 Allergy status to other antibiotic agents; Z88.5 Allergy status to narcotic agent
CPT/HCPCS: 93005; 99285; 96372; 96374; 36415; 82553; 82550; 85025; 80053; 84484; 71045; 93010; J0153; J1650

== ENCOUNTER → 2017-10-07 | Outpatient (CLI) | payer MEDICARE ==
--- NOTE | 2017-10-08 10:36 | WOMENS IMAGING REPORT ---
EXAM DESCRIPTION: 3D SCREENING MAMMO BILAT COMPLETED DATE/TIME: 10/07/2017 9:29 am REASON FOR STUDY: BILATERAL SCREENING MAMMO 3D/Z12.31 Z12.31 ENCNTR SCREEN MAMMOGRAM FOR MALIGNANT NEOPLASM OF RUPINDER COMPARISON: 2014 TECHNIQUE: Standard craniocaudal and mediolateral oblique views of each breast recorded using digita l acquisition and breast tomosynthesis. LIMITATIONS: None. FINDINGS: No masses, calcifications or architectural distortion. No areas of suspicion. Read with the assistance of CAD. .[facility] - R2 Cenova Version 1.3 .[facility] - R2 Cenova Version 1.3 .[facility] - R2 Cenova Version 2.4 .[facility] - R2 Cenova Version 2.4 .[facility] - R2 Band Saw Operator [employer] Cut[employer] Version 9.2 IMPRESSION: NORMAL MAMMOGRAM. BIRADS 1. BREAST DENSITY: b. There are scattered areas of fibroglandular density. BIRAD: 1 NEGATIVE RECOMMENDATION: ROUTINE SCREENING Please continue yearly bilateral screening tomosynthesis in September 2018 COMMENT: The patient has been notified of the results by letter per SA requirements. Additional no tification policies are in place for contacting patient with suspicious or incomplete findings. Quality ID #[id number]: The [employer] recommends an annual screening mammogram for women aged 40 years or over. This facility utilizes a reminder system to ensure that all patients receive reminder letters, and/or direct phone calls for appointments. This includes reminders for routine scr eening mammograms, diagnostic mammograms, or other Breast Imaging Interventions when appropriate. Th is patient will be placed in the appropriate reminder system. The [employer] (ACR) has developed recommendations for screening MRI of the breast s in certain patient populations, to be used in conjunction with mammography. Breast MRI surveillanc e may be appropriate for women with more than 20% lifetime risk of developing breast cancer as deter mined by genetic testing, significant family history of the disease, or history of mantle radiation f or Hodgkins Disease. ACR Practice Guidelines 2008. DBT Technology DBT is a type of tomographic mammography. With conventional mammography, overlapping breast tissue ma y make lesions difficult to detect, even with good compression. DBT uses an x-ray tube that rotates a round the breast, taking images at different angles. These images are then combined to create thin sl ices of the breast that the radiologist can view as a 3D reconstruction. The [employer] unit can perform full-field digital mammograms (2D imaging); or DBT (3D imaging); or both, in a combination mode that quickly performs both the mammogram and the tomosynthesis scan while the breast is still compressed. PQRS 6045F: Fluoroscopic imaging is not utilized for breast tomosynthesis. TECHNICAL DOCUMENTATION: FINDING NUMBER: (1) ASSESSMENT: (1) JOB ID: [id number] [employer]- All Rights Reserved Reading location - IP/workstation name: [facility]-RR
== END ==
LOC: WI 08:32
PROVIDERS: ATTEND Physician Assistant
DX: Z12.31 Encounter for screening mammogram for malignant neoplasm of breast (principal)
CPT/HCPCS: 77063; 77067

== ENCOUNTER 2018-03-09 02:12 | Emergency (ER) | payer MEDICARE, OTHER ==
--- NOTE | 2018-03-09 03:08 | RADIOLOGY REPORT (SQ) ---
EXAM DESCRIPTION: XR CHEST 2 VIEWS COMPLETED DATE/TME: 03/09/2018 02:35 CLINICAL HISTORY: 67 years Female, rib pain COMPARISON:03/31/2017 FINDINGS: Adequate lung volume, clear parenchyma, normal cardiac silhouette, atherosclerosis, and cervical spinal hardware. Upper abdominal clips. No displaced rib deformity or complication. IMPRESSION: No acute cardiopulmonary findings.
[2018-03-09] MEDS ORDERED: ACETAMINOPHEN 325 MG TABLET PO ONE (03:31)
[2018-03-09] MEDS ORDERED: LIDOCAINE 5% (700 MG) TRANSDERMAL ADH..PATCH TP ONE (03:31)
[2018-03-09] MEDS ORDERED: KETOROLAC TROMETHAMINE 60 MG/2 ML SDV IM ONE (03:31)
--- NOTE | 2018-03-09 03:37 | ER Document Report ---
ED General - General Chief Complaint: Rib Pain Stated Complaint: RIB PAIN Time Seen by Provider: 03/09/18 02:34 Notes: Patient presents with acute right lower rib pain that started just prior to arrival. The patient states that her son picked her up to try to pop her low back and when he did so she developed an excruciating pain to her right lower ribs. She describes it as a throbbing, aching, severe pain. The patient states that any attempt at breathing or moving worsens the pain. She denies any history of similar pain in the past except for when she broke 5 right ribs approximately 10 years ago. She denies any associated shortness of breath, nausea or vomiting. No additional injuries to any other location. She has not seen her general physician regarding today's concerns. TRAVEL OUTSIDE OF THE [place] IN LAST 30 DAYS: No - Related Data Allergies/Adverse Reactions: doxycycline [Doxycycline] Allergy (Verified 03/31/17 18:03) hydromorphone HCl [From Dilaudid] Allergy (Verified 03/31/17 18:03) morphine [Morphine] Allergy (Verified 03/31/17 18:03) Past Medical History - General Information source: Patient - Social History Smoking Status: Never Smoker Frequency of alcohol use: None Drug Abuse: None Lives with: Spouse/Significant other Family History: Reviewed & Not Pertinent - Past Medical History Cardiac Medical History: Reports: Hx Hypertension Renal/ Medical History: Denies: Hx Peritoneal Dialysis GI Medical History: Reports: Hx Diverticulitis Psychiatric Medical History: Reports: Hx Anxiety, Hx Bipolar Disorder, Hx Depression Past Surgical History: Reports: Hx Abdominal Surgery, Hx Appendectomy, Hx Cholecystectomy, Hx Gastric Bypass Surgery, Hx Hysterectomy, Hx Orthopedic Surgery - Cervical and lumbar back Review of Systems - Review of Systems Notes: Constitutional: Negative for fever. HENT: Negative for sore throat. Eyes: Negative for visual changes. Cardiovascular: Negative for chest pain. Respiratory: Negative for shortness of breath. Gastrointestinal: Negative for abdominal pain, vomiting or diarrhea. Genitourinary: Negative for dysuria. Musculoskeletal: Positive for right lower rib injury Skin: Negative for rash. Neurological: Negative for headaches, weakness or numbness. 10 point ROS negative except as marked above and in HPI. Physical Exam - Vital signs Vitals: Temp Pulse Resp BP Pulse Ox 98.1 F 66 20 114/67 95 03/09/18 02:17 03/09/18 02:17 03/09/18 02:17 03/09/18 02:17 03/09/18 02:17 Interpretation: Normal Notes: PHYSICAL EXAMINATION: GENERAL: Well-appearing, well-nourished and in no acute distress. HEAD: Atraumatic, normocephalic. EYES: Pupils equal round and reactive to light, extraocular movements intact, sclera anicteric, conjunctiva are normal. ENT: nares patent, oropharynx clear without exudates. Moist mucous membranes. NECK: Normal range of motion, supple without lymphadenopathy LUNGS: Breath sounds clear to auscultation bilaterally and equal. No wheezes rales or rhonchi. HEART: Regular rate and rhythm without murmurs Chest wall: Patient has exquisite tenderness on palpation of the right lower 4 ribs without any crepitus or apparent deformity ABDOMEN: Soft, nontender, normoactive bowel sounds. No guarding, no rebound. No masses appreciated. EXTREMITIES: Normal range of motion, no pitting or edema. No cyanosis. NEUROLOGICAL: No focal neurological deficits. Moves all extremities spontaneously and on command. PSYCH: Normal mood, normal affect. SKIN: Warm, Dry, normal turgor, no rashes or lesions noted. Course - Re-evaluation Re-evalutation: 03/09/18 03:32 Patient presents after her son picked her up in an attempt to pop her low back and accidentally hurt her right lower ribs. The patient is complaining of focal pain to the affected area. No tachypnea or hypoxemia at time of arrival. Pain controlled here in the emergency department with anti-inflammatory analgesics. Patient is already on chronic pain management and has been instructed to continue following with her pain management doctor regarding pain control. Chest x-ray without evidence of acute fracture, pneumothorax or pulmonary contusion. At this time will discharge with return precautions and follow-up recommendations. Verbal discharge instructions given at the bedside and opportunity for questions given. Medication warnings reviewed. Patient is in agreement with this plan and has verbalized understanding of return precautions and the need for primary care follow-up in the next 24-72 hours. - Vital Signs Vital signs: Temp Pulse Resp BP Pulse Ox 98.1 F 66 20 114/67 95 03/09/18 02:17 03/09/18 02:17 03/09/18 02:17 03/09/18 02:17 03/09/18 02:17 Discharge - Discharge Clinical Impression: Rib pain on right side, Rib injury Condition: Good Disposition: HOME, SELF-CARE Additional Instructions: Your chest wall pain is due to bruising of your ribs. This pain can last for up to 6 weeks. It is very important that you continue to take purposeful deep breaths. For your pain: Continue to take ibuprofen 600 mg every 6 hours or Tylenol 1000 mg every 6 hours. Apply local lidocaine to the area per bottle instructions. There is a product sold [id number] called "Aspercreme with lidocaine" that you can use for this purpose. Please follow-up with her primary care doctor in the next 2-3 days. Return to the emergency department immediately if you develop worsening shortness of breath, increased pain, begin coughing blood, pass out, or have any other symptoms that are worrisome to you. Referrals: RAMIREZ BELCHER PA [Primary Care Provider] - Follow up as needed
[2018-03-09] MEDS ORDERED: LIDOCAINE 5% (700 MG) TRANSDERMAL ADH..PATCH ONE (03:50)
[2018-03-09 04:21] VITALS: BP 130/67
== END 2018-03-09 04:15 | disposition home or self-care (01) ==
LOC: ER 02:12
DX: S29.9XXA Unspecified injury of thorax, initial encounter (principal); R07.81 Pleurodynia; X58.XXXA Exposure to other specified factors, initial encounter; Y92.009 Unspecified place in unspecified non-institutional (private) residence as the place of occurrence of the external cause; I10 Essential (primary) hypertension; Z90.49 Acquired absence of other specified parts of digestive tract; Z88.6 Allergy status to analgesic agent; Z90.710 Acquired absence of both cervix and uterus; Z98.84 Bariatric surgery status
CPT/HCPCS: 99283; 96372; 71046; A9270; J1885

== ENCOUNTER 2019-04-03 12:58 | Emergency (ER) | payer MEDICARE, OTHER ==
--- NOTE | 2019-04-03 14:09 | ER Document Report ---
HPI - HPI Time Seen by Provider: 04/03/19 14:05 Notes: Patient is a 68-year-old female with history of chronic neck and back pain who presents complaining of right anterior knee pain status post injury prior to arrival. Patient states that she tripped and landed on her knee. She has had pain since then. Patient states that she has been limping since then as well. She not injure any other part of her body. She is able to eat and drink without difficulty. She is urinating normally. Denies any headache, fever, head injury, neck pain, URI, sore throat, chest pain, palpitations, syncope, cough, shortness of breath, wheeze, dyspnea, abdominal pain, nausea/vomiting/diarrhea, urinary retention, dysuria, hematuria, loss of control of bowel or bladder, numbness/tingling, saddle anesthesia, muscle paralysis/weakness, or rash. - ROS Systems Reviewed and Negative: Yes All other systems reviewed and negative - REPRODUCTIVE Reproductive: DENIES: : Past Medical History - Social History Smoking Status: Unknown if Ever Smoked Family History: Reviewed & Not Pertinent - Past Medical History Cardiac Medical History: Reports: Hx Hypertension Renal/ Medical History: Denies: Hx Peritoneal Dialysis GI Medical History: Reports: Hx Diverticulitis Psychiatric Medical History: Reports: Hx Anxiety, Hx Bipolar Disorder, Hx Depression Past Surgical History: Reports: Hx Abdominal Surgery, Hx Appendectomy, Hx Cholecystectomy, Hx Gastric Bypass Surgery, Hx Hysterectomy, Hx Orthopedic Surgery - Cervical and lumbar back Vertical Provider Document - CONSTITUTIONAL Agree With Documented VS: Yes Notes: PHYSICAL EXAMINATION: GENERAL: Well-appearing, well-nourished and in no acute distress. LUNGS: Breath sounds clear to auscultation bilaterally and equal. No wheezes rales or rhonchi. HEART: Regular rate and rhythm without murmurs, rubs, gallops. Musculoskeletal: Rt knee: No obvious swelling, ecchymosis, effusion, or deformity. FROM to passive/active. + anterior knee tenderness to palp and to the lateral joint line area. Strength 5+/5. N/V intact distal. No other bony tenderness. No calf tenderness. Extremities: No cyanosis, clubbing, or edema b/l. Peripheral pulses 2+. Capillary refill less than 3 seconds. Bertin neg b/l. NEUROLOGICAL: Normal speech, limping gait. Normal sensory, motor exams PSYCH: Normal mood, normal affect. SKIN: Warm, Dry, normal turgor, no rashes or lesions noted. - INFECTION CONTROL TRAVEL OUTSIDE OF THE [place] IN LAST 30 DAYS: No Course - Re-evaluation Re-evalutation: 04/03/19 14:43 Patient is an afebrile, well-hydrated, 68-year-old female who presents to the ED with Rt knee pain which I suspect to be a contusion. Vitals are acceptable without any significant tachycardia, tachypnea, or hypoxia. PE is otherwise unremarkable for any neurovascular compromise, obvious tendon/ligament rupture, obvious fracture/dislocation, septic joint. X-ray was unremarkable for any acute pathology. Knee immobilizer provided today. Pt takes her tramadol regularly for pain. Patient is nontoxic-appearing. Patient is able to ambulate and weight-bear although she is limping. No other labs or imaging warranted at this time based on H&P. Conservative measures otherwise for symptoms. Recheck with your PCM in 3-5 days. Consider consult orthopedics. Return to the ED with any worsening/concerning symptoms otherwise as reviewed in discharge. Patient is in agreement. - Vital Signs Vital signs: Temp Pulse Resp BP Pulse Ox 97.7 F 70 18 135/88 H 98 04/03/19 13:05 04/03/19 13:05 04/03/19 13:05 04/03/19 13:05 04/03/19 13:05 Discharge - Discharge Clinical Impression: Right knee pain Qualifiers: Chronicity: acute Qualified Code(s): M25.561 - Pain in right knee Condition: Stable Disposition: HOME, SELF-CARE Additional Instructions: Rest, Ice, Compression, Elevation Tylenol/ibuprofen as needed Light stretches daily Strength exercises as able Moist heat and massage may help F/u with your PCP in 3-5 days for a recheck Consider consult(s) with Orthopedics/physical therapy for ongoing/worsening symptoms Return to the ED with any worsening symptoms and/or development of fever, headache, chest pain, palpitations, syncope, shortness of breath, trouble breathing, abdominal pain, n/v/d, muscle weakness/paralysis, numbness/tingling, swelling, redness, or other worsening symptoms that are concerning to you. Forms: Elevated Blood Pressure Referrals: RAMIREZ TIM PA-C [Primary Care Provider] - Follow up as needed [facility] [Provider Group] - Follow up as needed
--- NOTE | 2019-04-03 14:35 | RADIOLOGY REPORT (SQ) ---
EXAM DESCRIPTION: KNEE RIGHT 4 VIEWS COMPLETED DATE/TIME: 04/03/2019 2:15 pm REASON FOR STUDY: pain s/p fall COMPARISON: None. NUMBER OF VIEWS: Four views. TECHNIQUE: AP, lateral, and both oblique radiographic images acquired of the right knee. LIMITATIONS: None. FINDINGS: MINERALIZATION: Osteopenic BONES: No acute fracture or dislocation. No worrisome bone lesions. JOINT: Small suprapatellar knee joint effusion. Mild medial compartment joint space narrowing and alfonso ny spurring SOFT TISSUES: No soft tissue swelling. No radio-opaque foreign body. OTHER: No other significant finding. IMPRESSION: No acute fracture or malalignment. Small knee joint effusion TECHNICAL DOCUMENTATION: JOB ID: [id number] [employer]- All Rights Reserved Reading location - IP/workstation name: [email or web address]
[2019-04-03 15:19] VITALS: BP 132/88
== END 2019-04-03 15:04 | disposition home or self-care (01) ==
LOC: ER 12:58
DX: M25.561 Pain in right knee (principal); W01.0XXA Fall on same level from slipping, tripping and stumbling without subsequent striking against object, initial encounter; I10 Essential (primary) hypertension
CPT/HCPCS: 99283; 73564; L1830

== ENCOUNTER → 2019-04-28 | Outpatient (CLI) | payer MEDICARE, OTHER ==
--- NOTE | 2019-04-28 11:57 | WOMENS IMAGING REPORT ---
EXAM DESCRIPTION: 3D SCREENING MAMMO BILAT COMPLETED DATE/TIME: 04/28/2019 11:37 am REASON FOR STUDY: Z12.31 SCREENING MAMMO Z12.31 ENCNTR SCREEN MAMMOGRAM FOR MALIGNANT NEOPLASM OF B RE COMPARISON: 2014 to 2017 EXAM PARAMETERS: Views: Standard craniocaudal and mediolateral oblique views of each breast recorded using digital acquisition and breast tomosynthesis. Read with the assistance of CAD. .[facility] - [employer] Property Assessment Monitor Version 9.2 LIMITATIONS: None. FINDINGS: No suspicious masses, suspicious calcifications or architectural distortion. No areas of c oncern. IMPRESSION: NEGATIVE MAMMOGRAM. BIRADS 1. BREAST DENSITY: b. There are scattered areas of fibroglandular density. BIRAD: ASSESSMENT: 1 NEGATIVE RECOMMENDATION: ROUTINE SCREENING COMMENT: The patient has been notified of the results by letter per MQSA requirements. Additional no tification policies are in place for contacting patient with suspicious or incomplete findings. Quality ID #[id number]: The [employer] recommends an annual screening mammogram for women aged 40 years or over. This facility utilizes a reminder system to ensure that all patients receive reminder letters, and/or direct phone calls for appointments. This includes reminders for routine scr eening mammograms, diagnostic mammograms, or other Breast Imaging Interventions when appropriate. Th is patient will be placed in the appropriate reminder system. TECHNICAL DOCUMENTATION: FINDING NUMBER: (1) ASSESSMENT: (1) JOB ID: [id number] [employer]- All Rights Reserved Reading location - IP/workstation name: [email or web address]
== END ==
LOC: WI 11:00
PROVIDERS: ATTEND Physician Assistant
DX: Z12.31 Encounter for screening mammogram for malignant neoplasm of breast (principal)
CPT/HCPCS: 77063; 77067

== ENCOUNTER 2019-09-13 12:56 | Emergency (ER) | payer MEDICARE ==
--- NOTE | 2019-09-13 13:13 | ER Document Report ---
ED Extremity Problem, Lower - General Chief Complaint: Knee Injury Stated Complaint: FALL/KNEE INJURY Time Seen by Provider: 09/13/19 13:06 Primary Care Provider: [facility] [Provider Group] - Follow up as needed RAMIREZ TIM PA-C [Primary Care Provider] - Follow up as needed Mode of Arrival: Wheelchair Information source: Patient Notes: 69-year-old female presented to ED for complaint of right knee pain. She states she fell yesterday about 7 AM. She states she is on chronic pain management for chronic neck and back pain. She states she takes tramadol 100 mg in the morning and night and 50 mg in the afternoon about 1. She states she took her tramadol this morning at 645. She states the pain right now is sharp achy as a level 4/5. She has full range of motion of the knee right now but is very painful to try to bear any weight. TRAVEL OUTSIDE OF THE [place] IN LAST 30 DAYS: No - HPI Patient complains to provider of: Injury, Pain, Swelling Location: Knee - Right Occurred: Yesterday Where: Home, Indoors Onset/Duration: Intermittent Quality of pain: Achy, Sharp Severity: Moderate Pain Level: 4 Context: Fell Recent injury: Yes Associated symptoms: Painful ambulation Exacerbated by: Hanging down, Movement, Walking Relieved by: Nothing - Related Data Allergies/Adverse Reactions: doxycycline [Doxycycline] Allergy (Verified 04/03/19 14:06) hydromorphone HCl [From Dilaudid] Allergy (Verified 04/03/19 14:06) morphine [Morphine] Allergy (Verified 04/03/19 14:06) Past Medical History - General Information source: Patient - Social History Smoking Status: Former Smoker Frequency of alcohol use: None Drug Abuse: None Lives with: Family Family History: Reviewed & Not Pertinent Patient has homicidal ideation: No - Past Medical History Cardiac Medical History: Reports: Hx Hypertension Pulmonary Medical History: Reports: None EENT Medical History: Reports: None Neurological Medical History: Reports: None Endocrine Medical History: Reports: None Renal/ Medical History: Reports: None Malignancy Medical History: Reports: None GI Medical History: Reports: Hx Diverticulitis, Hx Colonoscopy Musculoskeletal Medical History: Reports Hx Arthritis, Reports Hx Musculoskeletal Deformity, Reports Hx Musculoskeletal Trauma Skin Medical History: Reports None Psychiatric Medical History: Reports: Hx Anxiety, Hx Bipolar Disorder, Hx Depression Traumatic Medical History: Reports: None Infectious Medical History: Reports: None Past Surgical History: Reports: Hx Abdominal Surgery, Hx Appendectomy, Hx Cholecystectomy, Hx Gastric Bypass Surgery, Hx Hysterectomy, Hx Orthopedic Surgery - Cervical and lumbar back Review of Systems - Review of Systems Constitutional: No symptoms reported EENT: No symptoms reported Cardiovascular: No symptoms reported Respiratory: No symptoms reported Gastrointestinal: No symptoms reported Genitourinary: No symptoms reported Female Genitourinary: No symptoms reported Musculoskeletal: Joint pain, Joint swelling Skin: No symptoms reported Hematologic/Lymphatic: No symptoms reported Neurological/Psychological: No symptoms reported Physical Exam - Vital signs Vitals: Temp Pulse Resp BP Pulse Ox 98.6 F 60 20 133/59 H 99 09/13/19 13:02 09/13/19 13:02 09/13/19 13:02 09/13/19 13:02 09/13/19 13:02 Interpretation: Normal - General General appearance: Appears well, Alert - HEENT Head: Normocephalic, Atraumatic Eyes: Normal Pupils: PERRL - Respiratory Respiratory status: No respiratory distress Chest status: Nontender Breath sounds: Normal Chest palpation: Normal - Cardiovascular Rhythm: Regular Heart sounds: Normal auscultation Murmur: No - Abdominal Inspection: Normal Distension: No distension Bowel sounds: Normal Tenderness: Nontender Organomegaly: No organomegaly - Back Back: Normal, Nontender - Extremities General upper extremity: Normal inspection, Nontender, Normal color, Normal ROM, Normal temperature General lower extremity: Normal color, Normal ROM, Normal temperature. No: Bertin's sign Knee: Tender, Pain with ROM, Patellar tendon intact, Tender joint line. No: Abrasion, Deformity, Dislocation, Drawer's test instability, Ecchymosis, Inst ability, Laceration, Laxity with valgus stress, Laxity with varus stress, Popliteal fossa tender - Neurological Neuro grossly intact: Yes Cognition: Normal Orientation: AAOx4 [place] Coma Scale Eye Opening: Spontaneous [place] Coma Scale Verbal: Oriented Alisson Coma Scale Motor: Obeys Commands [place] Coma Scale Total: 15 Speech: Normal Motor strength normal: LUE, RUE, LLE, RLE Sensory: Normal - Psychological Associated symptoms: Normal affect, Normal mood - Skin Skin Temperature: Warm Skin Moisture: Dry Skin Color: Normal Course - Re-evaluation Re-evalutation: 09/13/19 22:31 No acute injuries noted on x-ray there were degenerative changes to the knee. Patient stated that she was in a lot of pain so she was treated with a knee i mmobilizer and crutches. Patient was instructed to follow-up with primary care and orthopedics. Patient verbalized understanding and agreement with treatment plan patient was discharged home. - Vital Signs Vital signs: Temp Pulse Resp BP Pulse Ox 98.6 F 60 20 133/59 H 99 09/13/19 13:04 09/13/19 13:02 09/13/19 13:02 09/13/19 13:02 09/13/19 13:02 - Diagnostic Test Radiology reviewed: Image reviewed, Reports reviewed Procedures - Immobilization Right Knee Time completed: 13:45 Pre-Proc Neuro Vasc Exam: Normal Immobilizer type: Crutches, Knee immobilizer Performed by: PCT Post-Proc Neuro Vasc Exam: Normal Alignment checked and good: Yes Discharge - Discharge Clinical Impression: Fall Qualifiers: Encounter type: initial encounter Qualified Code(s): W19.XXXA - Unspecified fall, initial encounter Right knee pain Qualifiers: Chronicity: acute Qualified Code(s): M25.561 - Pain in right knee Condition: Stable Disposition: HOME, SELF-CARE Additional Instructions: SUSPECTED INTERNAL KNEE INJURY: The examiner of your injured knee suspects an internal injury to the cartilage or internal ligaments. This must be further investigated by an nanofabrication specialist. The knee should be protected, ice packed, and elevated while awaiting your follow-up exam by the orthopedist. If there is severe swelling, severe pain, or any new symptoms while awaiting your exam, you should call the orthopedist. (If he/she is unavailable, call us or return for re-examination.) KNEE IMMOBILIZING SPLINT: The knee immobilizing splint will protect the injury while healing begins. This type of splint does not allow the knee to bend at all. No running or sports will be possible. If the splint allows painfree walking, it's giving adequate protection. If there is still significant pain, crutches may be needed as well. Don't do anything that hurts. Adjusted the splint, if necessary. The stiffeners on the sides are attached with Velcro, so they can be easily moved to adjust for thigh and calf size. If you need help with these adjustments, come back. You will lose muscle strength in the thigh while using this splint. The doctor will advise you if it's safe to do isometric knee exercises while you use it. USE OF CRUTCHES: The doctor has recommended that you not bear weight at this time. You will need to use crutches. Adjust the crutches so the tops come to about two inches under the armpit while you are standing upright. Use your hands -- not your armpits -- to support your weight. To get into a chair, support yourself with one crutch on the injured side. Hold the chair with the other hand, then lower yourself while putting all your weight on the good leg. Going up stairs is `good leg up, step up, then bring up crutches and bad leg.' Down stairs is `bad leg and crutches down, then bring good leg down.' If you develop numbness or swelling in an arm or hand, you are using the crutches incorrectly. Return if you are having any problems with the crutches. ICE & ELEVATION: Apply ice packs frequently against the painful area. Many different schedules are recommended, such as "20 minutes on, 20 minutes off" or "one hour ice, two hours rest." If you need to work, you may need to go longer between ice treatments. You should plan to have the area ice packed AT LEAST one-fourth of the time. The ice should be applied over the wrap, tape, or splint, or over a layer of cloth -- not directly against the skin. Some ice bags have a built-in cloth and can be put directly on the skin. Your injured part should be elevated as much as possible over the next 48 hours. Try to keep the injury above the level of the heart. Avoid use of the injured area. Elevation and rest will decrease the swelling. USE OF [id number] IBUPROFEN: Ibuprofen (Advil, Nuprin, Medipren, Motrin IB) is a medication for fever and pain control. In addition, it has anti- inflammatory effects which may be beneficial, especially in the treatment of injuries. It's best to take ibuprofen with food. Persons with ulcer disease or allergy to aspirin should notify their physician of this before taking ibuprofen. Ibuprofen can be given every four to six hours, for a total of four doses daily. Age Pain or fever dose Antiinflammatory dose 6-8 yr 200 mg (1 tab) 200 mg (1 tab) 9-11 yr 200 mg (1 tab) 200-400 mg (1-2 tab) 11-14 yr 200-400 mg (1-2 tab) 400 mg (2 tab) 15-adult 400 mg (2 tab) 600 mg (3 tab) Take your tramadol as soon as you get home and follow-up with orthopedics. FOLLOW-UP CARE: If you have been referred to a physician for follow-up care, call the physicians office for an appointment as you were instructed or within the next two days. If you experience worsening or a significant change in your symptoms, notify the physician immediately or return to the Emergency Department at any time for re-evaluation. Forms: Elevated Blood Pressure Referrals: RAMIREZ TIM PA-C [Primary Care Provider] - Follow up as needed [facility] [Provider Group] - Follow up as needed
[2019-09-13 13:17] VITALS: BP 133/59
--- NOTE | 2019-09-13 13:30 | RADIOLOGY REPORT (SQ) ---
EXAM DESCRIPTION: KNEE RIGHT 4 VIEWS IMAGES COMPLETED DATE/TIME: 09/13/2019 1:19 pm REASON FOR STUDY: fall knee pain and swelling COMPARISON: 04/03/2019 NUMBER OF VIEWS: Four views. TECHNIQUE: AP, lateral, and both oblique radiographic images acquired of the right knee. LIMITATIONS: None. FINDINGS: MINERALIZATION: Normal. BONES: No acute fracture or dislocation. JOINT: Mild narrowing at the medial and patellofemoral compartments of the knee. No effusion. SOFT TISSUES: No soft tissue swelling. No radio-opaque foreign body. OTHER: No other significant finding. IMPRESSION: 1. No acute osseous findings. 2. Degenerative mild changes. TECHNICAL DOCUMENTATION: JOB ID: [id number] [employer]- All Rights Reserved Reading location - IP/workstation name: [email or web address]
== END 2019-09-13 13:55 | disposition home or self-care (01) ==
LOC: ER 12:56
DX: M25.561 Pain in right knee (principal); M79.89 Other specified soft tissue disorders; W19.XXXA Unspecified fall, initial encounter; M54.2 Cervicalgia; M54.9 Dorsalgia, unspecified; G89.29 Other chronic pain; Z79.899 Other long term (current) drug therapy; Z87.891 Personal history of nicotine dependence; I10 Essential (primary) hypertension
CPT/HCPCS: 99283

== ENCOUNTER 2019-10-04 17:35 | Emergency (ER) | payer MEDICARE, OTHER ==
[2019-10-04] MEDS ORDERED: ASPIRIN 81 MG TABLET, CHEWABLE PO ONE (17:44)
--- NOTE | 2019-10-04 17:49 | ER Document Report ---
ED Medical Screen (RME) - General Chief Complaint: Shortness Of Breath Stated Complaint: SHORTNESS OF BREATH EARLIER TODAY Time Seen by Provider: 10/04/19 17:44 Primary Care Provider: RAMIREZ TIM PA-C [Primary Care Provider] - Follow up as needed Mode of Arrival: Medic Information source: Patient Notes: 69-year-old female presented to ED from MDs office after she was seen for a period of nausea and vomiting and diaphoresis at the [facility]. She stated it lasted about 20 minutes. She states she is not having any symptoms at this time. She states she does not have any nausea vomiting diaphoresis no chest pain no shortness of breath. She states while at [facility] she was extremely short of breath and could not get a breath. She has a history of SVT with an ablation. Have a past medical history of a non-STEMI. I have greeted and performed a rapid initial assessment of this patient. A comprehensive ED assessment and evaluation of the patient, analysis of test results and completion of medical decision making process will be conducted by an additional ED providers. TRAVEL OUTSIDE OF THE [place] IN LAST 30 DAYS: No - Related Data Allergies/Adverse Reactions: doxycycline [Doxycycline] Allergy (Verified 04/03/19 14:06) hydromorphone HCl [From Dilaudid] Allergy (Verified 04/03/19 14:06) morphine [Morphine] Allergy (Verified 04/03/19 14:06) Past Medical History - Past Medical History Cardiac Medical History: Reports: Hx Hypertension Renal/ Medical History: Denies: Hx Peritoneal Dialysis GI Medical History: Reports: Hx Diverticulitis, Hx Colonoscopy Musculoskeltal Medical History: Reports Hx Arthritis, Reports Hx Musculoskeletal Deformity, Reports Hx Musculoskeletal Trauma Psychiatric Medical History: Reports: Hx Anxiety, Hx Bipolar Disorder, Hx Depression Past Surgical History: Reports: Hx Abdominal Surgery, Hx Appendectomy, Hx Cholecystectomy, Hx Gastric Bypass Surgery, Hx Hysterectomy, Hx Orthopedic Surgery - Cervical and lumbar back Doctor's Discharge - Discharge Referrals: RAMIREZ TIM PA-C [Primary Care Provider] - Follow up as needed
[2019-10-04 18:16] LABS: ABSOLUTE BASOPHILS # (AUTO) 0.1 10^3/uL (0.0-0.2); ABSOLUTE EOSINOPHILS # (AUTO) 0.1 10^3/uL (0.0-0.6); ABSOLUTE LYMPHOCYTES (AUTO) 2.3 10^3/uL (0.5-4.7); ABSOLUTE MONOCYTES (AUTO) 0.5 10^3/uL (0.1-1.4); ABSOLUTE NEUT (AUTO) 6.5 10^3/uL (1.7-8.2); BASOPHILS % (AUTO) 0.5 % (0-2); EOSINOPHILS % (AUTO) 1.2 % (0-6); HEMATOCRIT 35.6 % (36.0-47.0); HEMOGLOBIN 11.8 g/dL (12.0-15.5); LYMPHOCYTES % (AUTO) 24.6 % (13-45); MEAN CORPUSCULAR HEMOGLOBIN 29.5 pg (27.0-33.4); MEAN CORPUSCULAR HGB CONC 33.3 g/dL (32.0-36.0); MEAN CORPUSCULAR VOLUME 89 fl (80-97); MONOCYTES % (AUTO) 5.2 % (3-13); PLATELET COUNT 399 10^3/uL (150-450); RED BLOOD COUNT 4.01 10^6/uL (3.72-5.28); SEGMENTED NEUTROPHILS % (AUTO) 68.5 % (42-78); TOTAL CELLS COUNTED % (AUTO) 100 %; WHITE BLOOD COUNT 9.5 10^3/uL (4.0-10.5)
--- NOTE | 2019-10-04 18:26 | RADIOLOGY REPORT (SQ) ---
EXAM DESCRIPTION: CHEST 2 VIEWS IMAGES COMPLETED DATE/TIME: 10/04/2019 5:03 pm REASON FOR STUDY: Chest pain COMPARISON: None. EXAM PARAMETERS: NUMBER OF VIEWS: two views TECHNIQUE: Digital Frontal and Lateral radiographic views of the chest acquired. RADIATION DOSE: NA LIMITATIONS: none FINDINGS: LUNGS AND PLEURA: No opacities, masses or pneumothorax. No pleural effusion. MEDIASTINUM AND HILAR STRUCTURES: No masses or contour abnormalities. HEART AND VASCULAR STRUCTURES: Heart normal size. No evidence for failure. BONES: No acute findings. HARDWARE: None in the chest. Cervical fixation and lumbar fixation partially visualized. Surgical c lips in the upper abdomen. OTHER: No other significant finding. IMPRESSION: NO ACUTE RADIOGRAPHIC FINDING IN THE CHEST. TECHNICAL DOCUMENTATION: JOB ID: [id number] [email or web address]- All Rights Reserved Reading location - IP/workstation name: [email or web address]
[2019-10-04 18:37] LABS: ALBUMIN 4.3 g/dL (3.5-5.0); ALKALINE PHOSPHATASE 118 U/L (38-126); ANION GAP 6 (5-19); ASPARTATE AMINO TRANSFERASE 23 U/L (14-36); BILIRUBIN,DIRECT 0.1 mg/dL (0.0-0.4); BILIRUBIN,TOTAL 0.3 mg/dL (0.2-1.3); BLOOD UREA NITROGEN 14 mg/dL (7-20); CALCIUM 9.3 mg/dL (8.4-10.2); CARBON DIOXIDE 27 mmol/L (22-30); CHLORIDE 103 mmol/L (98-107); CREATINE KINASE 66 U/L (30-135); GLUCOSE 122 mg/dL (75-110); POTASSIUM 4.1 mmol/L (3.6-5.0); TOTAL PROTEIN 7.2 g/dL (6.3-8.2)
[2019-10-04 18:48] LABS: NT PRO BNP 227 pg/mL (<125)
[2019-10-04 19:14] LABS: TROPONIN I < 0.012 ng/mL
--- NOTE | 2019-10-04 22:12 | ER Document Report ---
ED General - General Chief Complaint: Nausea Stated Complaint: SHORTNESS OF BREATH EARLIER TODAY Time Seen by Provider: 10/04/19 17:44 Primary Care Provider: RAMIREZ TIM PA-C [Primary Care Provider] - Follow up as needed Mode of Arrival: Medic Notes: 69-year-old female presents emergency department complaining of intermittent nausea and diaphoresis over the past 3 weeks that does not seem to be exacerbated by anything in particular such as food or exertion. States that earlier today when she was at [facility] around 11 AM she developed nausea, shortness of breath, profuse diaphoresis and an aching in her chest that did not radiate. It did get better when she sat down on the toilet and rested. Patient states that the ache has since resolved, she went to see her primary care PA who did an EKG and said she thought she saw some changes so she sent her to the emergency department. Patient has no history of ischemic cardiac disease, does admit a history of an ablation, no stenting, had a chemical stress test over 2 years ago, does not remember exactly who did it. TRAVEL OUTSIDE OF THE [place] IN LAST 30 DAYS: No - Related Data Allergies/Adverse Reactions: doxycycline [Doxycycline] Allergy (Verified 04/03/19 14:06) hydromorphone HCl [From Dilaudid] Allergy (Verified 04/03/19 14:06) morphine [Morphine] Allergy (Verified 04/03/19 14:06) Past Medical History - General Information source: Patient - Social History Smoking Status: Never Smoker Frequency of alcohol use: None Lives with: Alone Family History: CAD - Father with heart attack in his 50s, 2 brothers with heart attacks,, DM - Mother, Malignancy - Brother with pancreatic cancer, mother with reproductive cancer. - Past Medical History Cardiac Medical History: Reports: Hx Hypertension Renal/ Medical History: Denies: Hx Peritoneal Dialysis GI Medical History: Reports: Hx Diverticulitis, Hx Colonoscopy Musculoskeletal Medical History: Reports Hx Arthritis, Reports Hx Musculoskeletal Deformity, Reports Hx Musculoskeletal Trauma Psychiatric Medical History: Reports: Hx Anxiety, Hx Bipolar Disorder, Hx Depression Past Surgical History: Reports: Hx Abdominal Surgery, Hx Appendectomy, Hx Martha cystectomy, Hx Gastric Bypass Surgery, Hx Hysterectomy, Hx Orthopedic Surgery - Cervical and lumbar back Review of Systems - Review of Systems Constitutional: See HPI, Diaphoresis EENT: No symptoms reported Cardiovascular: See HPI, Chest pain Respiratory: See HPI, Short of breath. denies: Hurts to breathe Gastrointestinal: See HPI, Nausea. denies: Diarrhea, Vomiting -: Yes All other systems reviewed and negative Physical Exam - Vital signs Vitals: Pulse Ox 95 10/04/19 17:44 Interpretation: Normal - Notes Notes: GENERAL: Alert, interacts well. No acute distress. HEAD: Normocephalic, atraumatic EYES: Pupils equal, round and reactive to light, extraocular movements intact. ENT: Oral mucosa moist, tongue midline. NECK: Full range of motion, supple, trachea midline. LUNGS: Clear to auscultation bilaterally, no wheezes, rales or rhonchi, no respiratory distress. HEART: Regular rate and rhythm, no murmurs, gallops, rubs. ABDOMEN: Soft, nontender, nondistended, bowel sounds present in all 4 quadrants. EXTREMITIES: Moves all 4 extremities spontaneously, no edema, radial and dorsalis pedis pulses 2/4 bilaterally. No cyanosis. NEUROLOGICAL: Alert and oriented x3, normal speech. PSYCH: Normal mood, normal affect. SKIN: Warm, Dry, normal turgor, no rashes or lesions noted. Course - Re-evaluation Re-evalutation: 10/04/19 22:11 CBC shows mild anemia with hemoglobin 11.8, CMP grossly unremarkable, initial troponin is negative, proBNP minimally elevated at 227. EKG is nonischemic. Chest X-Ray 10/04/19 17:44 IMPRESSION: NO ACUTE RADIOGRAPHIC FINDING IN THE CHEST. Discussed with Dr. Pickett, agrees that as the patient is currently asymptomatic, EKG has no changes and biomarkers are negative that so long as a second set of biomarkers are negative patient can be discharged home and he will follow-up with her as an outpatient for a stress test within the next week. Patient will have COVID testing performed today to ensure that she is safe to go to his office. Patient does not have any known exposures to COVID positive patients at this time. 10/04/19 23:38 Repeat troponin is also negative. Patient remains asymptomatic. COVID testing is pending. Patient will be discharged to home. Referred to Dr. Pickett, encouraged to return for return of symptoms. - Vital Signs Vital signs: Temp Pulse Resp BP Pulse Ox 99.3 F 66 10 L 135/69 H 95 10/04/19 18:23 10/04/19 18:23 10/04/19 22:01 10/04/19 22:01 10/04/19 22:01 - Laboratory Result Diagrams: 10/04/19 17:56 10/04/19 17:56 Laboratory results interpreted by me: 10/04/19 10/04/19 10/04/19 17:56 17:56 17:56 Hgb 11.8 L Hct 35.6 L Sodium 135.6 L Glucose 122 H NT-Pro-B Natriuret Pep 227 H - EKG Interpretation by Me Additional EKG results interpreted by me: 10/04/19 23:39 EKG shows sinus rhythm at a rate of 54, normal axis, normal intervals, no ST segment elevations or depressions, there are nonspecific T wave inversions in leads III, aVF, V3 through V5 with T wave flattening in V6 per my interpretation. Discharge - Discharge Clinical Impression: Chest pain, moderate coronary artery risk Condition: Stable Disposition: HOME, SELF-CARE Additional Instructions: I am worried should your chest pain may be coming from your heart. There is no evidence of active heart attack at this time however if your chest pain, nausea or shortness of breath return please return to the emergency department. I have discussed your case with Dr. Pickett, he has agreed to see you in his office within the next week for a stress test. Please call his office first thing tomorrow morning to arrange a follow-up appointment. Please continue taking an 81 mg aspirin every day. Referrals: RAMIREZ TIM PA-C [Primary Care Provider] - Follow up as needed VI PICKETT MD [ACTIVE STAFF] - Follow up in 3-5 days
[2019-10-05 01:35] VITALS: BP 126/70
--- NOTE | 2019-10-05 12:07 | EKG REPORT ---
SEVERITY:- ABNORMAL ECG - SINUS RHYTHM NONSPECIFIC T ABNORMALITIES, DIFFUSE LEADS, NEW SINCE 03/31/17 EKG : Confirmed by: Brandon Andrews MD 05-Oct-2019 12:06:58
== END 2019-10-05 01:20 | disposition home or self-care (01) ==
LOC: ER 17:35
DX: R11.0 Nausea (principal); R61 Generalized hyperhidrosis; R06.02 Shortness of breath; I10 Essential (primary) hypertension; Z20.828 Contact with and (suspected) exposure to other viral communicable diseases; Z88.6 Allergy status to analgesic agent
CPT/HCPCS: 93005; 99285; 36415; 82550; 83690; 85025; 80053; 84484; 83880; 71046; 93010; U0003; A9270; C9803; 87635

== ENCOUNTER → 2019-10-25 | Outpatient (CLI) | payer MEDICARE, OTHER ==
[~2019-10-25] MED LIST: REGADENOSON INJ 0.4 MG/5 ML DISP.SYRIN IV ONE
--- NOTE | 2019-10-25 13:58 | DRAGON STRESS TEST REPORT ---
Pharmacological nuclear stress test Date: October 25, 2019 Referring physician: Schuyler Jane MD Performing physician: Schuyler Jane MD Indication: Chest pain Clinical history 69-year-old lady with medical history significant for systemic hypertension and dyslipidemia who presented with chest pain. Procedure The patient presented to the stress lab. Initially rest images were obtained according to standard protocol after the injection of 12.78 millicurie technetium 99m sestamibi. Subsequently the patient underwent pharmacological stress utilizing 0.4 mg of regadenoson intravenously. The patient's EKG and vital signs were monitored throughout the procedure. Subsequently patient was injected with 35.5 millicuries of technetium 99m sestamibi. After a period of rest, stress images were obtained according to standard protocol. EKG showed sinus rhythm at beats per minute. The patient's stress EKG did not show any evidence for myocardial ischemia. There were no arrhythmias observed. Raw as well as processed rest and stress images were reviewed. There was mild to moderate gut uptake which did not interfere with the study. The rest and stress images show uniform uptake of radioactive isotope without any fixed or reversible defects to suggest myocardial ischemia or myocardial infarction. There is normal contractility post-rest. The calculated ejection fraction is 60 %. The TID ratio is 1.02. Conclusion The stress EKG is negative for myocardial ischemia There is no scintigraphic evidence of myocardial infarction or ischemia provoked by pharmacological stress. There is normal contractility post-stress. The gated left ventricular ejection fraction is 60 %. The patient will be given an appointment to discuss these results. [facility]
== END ==
LOC: RAD 08:15
PROVIDERS: ATTEND Internal Medicine
DX: I25.9 Chronic ischemic heart disease, unspecified (principal); I10 Essential (primary) hypertension
CPT/HCPCS: 93017; 78452; A9500; J2785; Q9969

== ENCOUNTER → 2019-10-27 | Outpatient (CLI) | payer MEDICARE, OTHER | LOC: SP 13:53 | PROVIDERS: ATTEND Internal Medicine | DX: I25.9 Chronic ischemic heart disease, unspecified (principal); I10 Essential (primary) hypertension; R06.00 Dyspnea, unspecified | CPT/HCPCS: 93306 ==